=== PATIENT | female | born 1980 ===

== ENCOUNTER 2018-03-24 11:45 | Emergency (ER) | payer BC, OTHER ==
[2018-03-24] MEDS ORDERED: Lorazepam 2 MG/ML VIAL ONE (12:20)
[2018-03-24 12:27] LABS: Hemoglobin 15.4 g/dL (12.0-16.0); Mean Corpuscular HGB CONC 32.3 g/dL (32.0-36.0); Mean Corpuscular Hemoglobin 26.6 pg (27.0-31.0); Mean Corpuscular Volume 82.2 fL (78.0-98.0); Mean Platelet Volume 6.7 fL (7.4-10.4); Platelet Count 410 thou/uL (130-400); RBC Distribution Width 13.1 % (11.5-14.5); Red Blood Cell (RBC) Count 5.81 mill/uL (4.20-5.40); White Blood Cell (WBC) Count 9.3 thou/uL (4.8-10.8)
[2018-03-24] MEDS ORDERED: ISOVUE-370 76%-LOCM 1 ML ONE (12:33)
[2018-03-24 12:47] LABS: ALT (SGPT) 50 U/L (8-55); AST (SGOT) 33 U/L (5-34); Albumin 4.8 g/dL (3.5-5.0); Alkaline Phosphatase 76 U/L (40-150); Anion Gap 15 mmol/L (10-20); BUN (Urea Nitrogen) 12 mg/dL (7.0-18.7); Bilirubin, Total 0.5 mg/dL (0.2-1.2); CK (CPK) 100 U/L (29-168); Calc. Creatinine Clearance 0 mL/min (70-130); Calcium 10.4 mg/dL (7.8-10.44); Carbon Dioxide 22 mmol/L (22-29); Chloride 103 mmol/L (98-107); Estimated GFR-MDRD 77; Globulin 3.8 g/dL (2.4-3.5); Glucose 94 mg/dL (70-105); Lipase 18 U/L (8-78); Magnesium 2.3 mg/dL (1.6-2.6); Potassium 4.2 mmol/L (3.5-5.1); Protein, Total 8.6 g/dL (6.0-8.3); Sodium 136 mmol/L (136-145)
[2018-03-24 12:50] LABS: CKMB 1.8 ng/mL (0-6.6); Troponin I Less than 0.010 ng/mL (< 0.028)
[2018-03-24 12:57] LABS: Lymphocytes 51 % (21-51); MDiff Complete? YES; Monocytes 10 % (0-10); Neutrophil 37 % (42-75); PLT Morphology Comment Appears Increased; Reactive Lymphocytes 2 % (0-10)
[2018-03-24 13:19] LABS: BHCG - Serum Negative (NEGATIVE); Pregs Control Background? CLEAR/WHITE (CLR/WHITE); Pregs Control Bar Appear? YES (CONTROL BAR)
--- NOTE | 2018-03-24 14:45 | CT ---
CT PULMONARY ANGIOGRAM WITH IV CONTRAST AND 3D MIP RECONSTRUCTIONS: Date: 03/24/18 PROVIDED CLINICAL HISTORY: Shortness of breath. FINDINGS: Evaluation for pulmonary embolus is limited due to bolus timing. There is no evidence for central or proximal segmental pulmonary embolus. The thoracic aorta appears normal in caliber. There is no evide nce for dissection. The heart, pericardium, and great vessels appear unremarkable. There is no evidence for thoracic lymph node enlargement. There is no pleural fluid or pneumothorax apparent. The airway appears patent and of normal caliber. The lungs are free of significant opacity. The visua lized portions of the upper abdomen demonstrate no acute abnormality. The osseous structures demonstr ate no lytic or blastic lesions. IMPRESSION: Limited study due to bolus timing issues. No evidence for central or proximal segmental pulmonary emb olus. POS: [facility]
== END 2018-03-24 15:28 | disposition home or self-care (01) ==
LOC: ERS 11:45
DX: R06.02 Shortness of breath (principal); E03.9 Hypothyroidism, unspecified; F90.9 Attention-deficit hyperactivity disorder, unspecified type; Z79.899 Other long term (current) drug therapy
CPT/HCPCS: 36415; 71275; 80053; 82550; 82553; 83690; 83735; 84484; 84703; 85025; 93005; 96374; J2060

== ENCOUNTER 2024-03-28 10:43 | Outpatient (CLI) | payer BC | END 2024-03-28 10:44 | disposition home or self-care (01) | LOC: SCSRAD 10:43 | PROVIDERS: ATTEND Nurse Practitioner Family | DX: R10.31 Right lower quadrant pain (principal) | CPT/HCPCS: 74018 ==